=== PATIENT | female | born 1950 | race Caucasian/White ===

== ENCOUNTER 2021-01-25 15:39 | Emergency (ER) | payer MEDICARE ==
[~2021-01-25] VITALS: Ht 165.1 cm; Wt 81.8 kg
[2021-01-25] MEDS ORDERED: METOPROL TAR25 MG PO (16:26)
[2021-01-25] MEDS ORDERED: FLUOXETINE10 M2 PO (16:27)
[2021-01-25] MEDS ORDERED: KLONOPIN0.5 MG PO (16:27)
[2021-01-25] MEDS ORDERED: IBUPROFEN600 MG PO (18:10)
[2021-01-25 19:02] VITALS: BP 197/78
== END 2021-01-25 19:09 | disposition home or self-care (01) ==
LOC: ED 15:39
DX: R07.81 Pleurodynia (principal); S51.012A Laceration without foreign body of left elbow, initial encounter; S51.812A Laceration without foreign body of left forearm, initial encounter; I10 Essential (primary) hypertension; F32.A Depression, unspecified; F41.9 Anxiety disorder, unspecified; G62.9 Polyneuropathy, unspecified; W01.0XXA Fall on same level from slipping, tripping and stumbling without subsequent striking against object, initial encounter; Y92.009 Unspecified place in unspecified non-institutional (private) residence as the place of occurrence of the external cause

== ENCOUNTER 2022-03-12 00:18 | Emergency (ER) | payer MEDICARE, OTHER ==
[2022-03-12] VITALS (12 sets, daily range): BP systolic 128–161; BP diastolic 53–67
[~2022-03-12] VITALS: Ht 165.1 cm; Wt 88.1 kg
[~2022-03-12 00:18] MED LIST: FLUOXETINE10 M2 PO; IBUPROFEN600 MG PO; KLONOPIN0.5 MG PO; METOPROL TAR25 MG PO
[2022-03-12 00:50] LABS: BASO% 0.1 % (0-3); EOS% 0.4 % (0-8); HEMATOCRIT 41.1 % (37.0-47.0); HEMOGLOBIN 13.8 g/dl (12.0-16.0); IMMATURE GRANULOCYTES 0.1 % (0.0-5.0); LYMPH% 3.2 % (15-41); MEAN CELL VOLUME 95.1 fL CALC (80.0-100.0); MEAN CORPUSCULAR HGB 31.9 pG CALC (26.0-32.0); MEAN CORPUSCULAR HGB CONC 33.6 g/dL CAL (32.0-36.0); MONO% 4.8 % (2-13); NEUT# 13.27 thou/uL (2.00-7.15); NEUT% 91.4 % (42-76); RED BLOOD COUNT 4.32 mill/uL (4.20-5.60); RED CELL DISTRI WIDTH 12.8 % (11.5-15.5)
[2022-03-12 01:01] LABS: ALBUMIN 4.5 g/dL (3.2-5.0); ALKALINE PHOSPHATASE 95 u/l (38-126); ANION GAP 13 (6-22 (CALC)); BILIRUBIN, TOTAL 0.9 mg/dL (0.02-1.3); BUN 23 mg/dL (8-23); BUN/CREATININE RATIO 26 (12-20 (CALC)); CARBON DIOXIDE 24 mmol/l (22-30); CHLORIDE 98 mmol/l (95-108); CREATININE 0.9 mg/dL (0.5-1.0); GFR FOR AFR.AMER. > 60 ML/MIN (>=60 (CALC)); GFR OTHER RACES > 60 ML/MIN (>=60 (CALC)); MAGNESIUM 1.6 mg/dL (1.6-2.3); POTASSIUM 3.8 mmol/l (3.5-5.1); SGOT/AST 45 u/l (9-36); SODIUM 131 mmol/l (137-146); TOTAL PROTEIN 7.5 g/dL (6.3-8.2)
[2022-03-12] MEDS ORDERED: PROMETHAZINE HY25 M1 PO (03:06)
[2022-03-12] MEDS ORDERED: IMODIUM2 MG PO (03:06)
== END 2022-03-12 03:32 | disposition home or self-care (01) ==
LOC: ED 00:18
PROVIDERS: Family Medicine
DX: A08.4 Viral intestinal infection, unspecified (principal); I10 Essential (primary) hypertension; G62.9 Polyneuropathy, unspecified; F41.9 Anxiety disorder, unspecified; F32.A Depression, unspecified; F17.200 Nicotine dependence, unspecified, uncomplicated; Z20.822 Contact with and (suspected) exposure to COVID-19